=== PATIENT | female | born 1995 | race Hispanic/Latino ===

== ENCOUNTER 2017-01-25 22:31 | Emergency (ER) | payer BC ==
[2017-01-25 22:42] VITALS: BMI 21.1
[2017-01-25 23:11] VITALS: TEMP 99.3; O2SAT 100
--- NOTE | 2017-01-25 23:35 | ED PDOC ---
Arrival/HPI - General Historian: Patient - General Chief Complaint: Abdominal Pain Time Seen by Provider: 01/25/17 23:12 - History of Present Illness Narrative History of Present Illness (Text): 01/25/17 23:32 Patient with past medical history of PCO S and irregular menses, complains of one-week history of intermittent right pelvic pain, patient states when the pain initially started it lasted for 2 days then resolved spontaneously on its own. Patient then adds that 2 days ago the pain recurred and has continued to be intermittent in nature, however today the pain was more pronounced associated with nausea and dysuria, prompting ER visit. Otherwise: (-) vomiting , (-) diarrhea, (-) fever, (-) urinary frequency, (-) vaginal bleeding / discharge, (-) decrease in appetite, (-) melena, (-) hematochezia. Has no history of prior abdominal surgery or similar conditions in the past. Patient states that she saw her PMD yesterday for similar symptoms, had a urine test done which showed no UTI and a negative hCG test. Patient does add that she has never had sexual intercourse and that her last menstrual period was 3 months ago. PMD Pa (Aurora Taylor PA-C) Past Medical History - Provider Review Nursing Documentation Reviewed: Yes - Past History Past History: No Previous - Tetanus Immunization Tetanus Immunization: Up to Date - Psychiatric Hx Depression: No Hx Emotional Abuse: No Hx Physical Abuse: No Hx Substance Use: No - Past Surgical History Past Surgical History: No Previous - Suicidal Assessment Feels Threatened In Home Enviroment: No Family/Social History - Physician Review Nursing Documentation Reviewed: Yes Family/Social History: No Known Family HX Smoking Status: n Hx Alcohol Use: No Hx Substance Use: No Allergies/Home Meds Allergies/Adverse Reactions: Allergies amoxicillin [From Augmentin] Allergy (Verified 01/25/17 22:43) RASH azithromycin Allergy (Verified 01/25/17 22:43) RASH clavulanic acid [From Augmentin] Allergy (Verified 01/25/17 22:43) RASH Review of Systems - Review of Systems Constitutional: Normal. absent: Fatigue, Weight Change, Fevers Respiratory: Normal. absent: SOB, Cough, Sputum Cardiovascular: Normal. absent: Chest Pain, Palpitations, Edema Gastrointestinal: Normal, Abdominal Pain, Nausea. absent: Stool Changes, Vomiting, Appetite Changes Genitourinary Female: Normal, Dysuria. absent: Frequency, Hematuria Musculoskeletal: Normal. absent: Arthralgias, Back Pain, Neck Pain Skin: Normal. absent: Rash, Pruritis, Skin Lesions Physical Exam - Physical Exam Narrative Physical Exam (Text): 01/25/17 23:36 GENERAL APPEARANCE: Patient is awake, alert, oriented x 3, in no acute distress. SKIN: Warm, dry; (-) cyanosis. EYES: (-) conjunctival pallor, (-) scleral icterus. ENMT: Mucous membranes moist. NECK: (-) tenderness, (-) stiffness, (-) lymphadenopathy. CHEST AND RESPIRATORY: (-) rales, (-) rhonchi, (-) wheezes; breath sounds equal bilaterally. HEART AND CARDIOVASCULAR: (-) irregularity; (-) murmur, (-) gallop. ABDOMEN AND GI: (-) distention. Bowel sounds active; (+) minimal tenderness to the R pelvic area, (-) McBurney's, (-) Psoas sign, (-) Obturator, (-) Rovsing , (-) guarding, (-) rebound, (-) palpable masses, (-) CVA tenderness. EXTREMITIES: (-) deformity, (-) edema, (+) distal pulses. NEURO AND PSYCH: Mental status as above; (-) focal findings. (Brandon TORRES, Aurora Unger) Vital Signs Temp Pulse Resp BP Pulse Ox 01/26/17 00:45 90 18 118/75 100 01/25/17 22:41 99.3 F 111 H 20 120/76 100 Medical Decision Making Re-evaluation Time: 01:15 Reassessment Condition: Re-examined, Improved (Patient laying in bed in no acute distress. Reports no abdominal pain or nausea. Abdomen remains soft with no tenderness, no gaurding and no rebound. (-) McBurney's. Repeat VS P 90 BP 118 /75 R 18 O2sat 100%RA. ) - Lab Interpretations I have reviewed the lab results: Yes (UA shows (+) UTI, given macrobid po.) Interpretation: All labs normal ED Course and Treatment: 01/25/17 23:37 21 yo F presents with R pelvic pain. To r/o ovarian torsion, possible ovarian cyst, unlikely to be appendicitis. Patient is refusing analgesics and antiemetics at this time. Plan: -- Labs -- IV fluids -- Urinalysis -- Reassess and disposition -- US pelvic 01/26/17 01:18 Diagnostic results discussed with the patient and family in great detail. Based on history, exam and diagnostic results plan will be for outpatient follow -up with PMD and with BULK MAIL CLERK. Patient states that she has an appointment scheduled in 4 days with her BULK MAIL CLERK. Patient states she fully agrees with and understands discharge instructions. States that she agrees with the plan and disposition. Verbalized and repeated discharge instructions and plan. I have given the patient opportunity to ask any additional questions. Follow up with primary care physician and adult crossing guard in 1-2 days without fail. Advised to take medication as prescribed. Return to the emergency room at any time for any new or worsening symptoms. (Brandon TORRES,Aurora Unger) - Lab Interpretations Lab Results: 01/25/17 23:05 01/25/17 23:05 Lab Results 01/25/17 23:05: Sodium 143, Potassium 3.6, Chloride 104, Carbon Dioxide 25, Anion Gap 18, BUN 8, Creatinine 0.7, Est GFR ( Amer) > 60, Est GFR (Non- Af Amer) > 60, Random Glucose 107, Calcium 10.1, Total Bilirubin 0.5, AST 37, ALT 31, Alkaline Phosphatase 74, Total Protein 8.9 H, Albumin 4.9 H, Globulin 4.0, Albumin/Globulin Ratio 1.2, Lipase 125 01/25/17 23:05: Urine Color Yellow, Urine Appearance Clear, Urine pH 7.0, Ur Specific [place] 1.010, Urine Protein Negative, Urine Glucose (UA) Negative, Urine Ketones Negative, Urine Blood Negative, Urine Nitrate Negative, Urine Bilirubin Negative, Urine Urobilinogen 0.2, Ur Leukocyte Esterase Trace H, Urine RBC 0 - 2, Urine WBC 2 - 5, Ur Epithelial Cells 4 - 5, Urine Bacteria Occ 01/25/17 23:05: PT 10.6, INR 0.98, APTT 27.8 01/25/17 23:05: WBC 9.9 D, RBC 4.52, Hgb 13.2, Hct 39.1, MCV 86.5, MCH 29.2, MCHC 33.8, RDW 12.4, Plt Count 330, MPV 10.9, Gran % 65.7, Lymph % (Auto) 24.0, [place] % (Auto) 9.2 H, Eos % (Auto) 0.5 L, Baso % (Auto) 0.6, Gran # 6.47, Lymph # 2.4, [place] # 0.9 H, Eos # 0.1, Baso # 0.06 - RAD Interpretation Narrative RAD Interpretations (Text): 01/26/17 01:02 US pelvis: FINDINGS: Uterus/cervix: Uterus measures 7.3 x 2.9 x 2.7 cm. Endometrium measures 3.4 mm No myometrial mass. Right ovary: Right ovary measures 3.5 x 2 x 3.1 cm. Follicles. Normal blood flow. Left ovary: Left ovary measures 2.7 x 2.2 x 3.1 cm. Follicles. Normal blood flow. Free fluid: No free fluid. IMPRESSION: This examination is predicated on a negative test All of the findings can be seen normally given the patient's age, and presumed negative test. No definitive sonographic findings of polycystic ovarian syndrome Dictated and Authenticated by: Sadia Stone MD 01/26/2017 12:49 AM Eastern Time ([place] & [place]) (Brandon TORRES,Aurora Unger) Radiology Orders: 01/25/17 23:30 Pelvis [PELVIS ULTRASOUND] [US] Routine - Medication Orders Current Medication Orders: Discontinued Medications Nitrofurantoin Macrocrystals (Macrobid) 100 mg PO ONCE ONE Stop: 01/26/17 01:18 Last Admin: 01/26/17 01:27 Dose: 100 mg - PA / AREA ATTENDANT / Resident Statement / has reviewed & agrees with the documentation as recorded. Disposition/Present on Arrival - Present on Arrival Any Indicators Present on Arrival: No History of DVT/PE: No History of Uncontrolled Diabetes: No Urinary Catheter: No History of Decub. Ulcer: No History Surgical Site Infection Following: None - Disposition Have Diagnosis and Disposition been Completed?: Yes Disposition Time: 01:00 Patient Plan: Discharge - Disposition Diagnosis: Pelvic pain, UTI (urinary tract infection) Disposition: HOME/ ROUTINE Condition: IMPROVED Discharge Instructions (ExitCare): Urinary Tract Infection in Women (ED), Pelvic Pain (ED) Print Language: ARABIC Additional Instructions: Thank you for letting us take care of you today. You were treated for pelvic pain, UTI. The emergency medical care you received today was directed at your acute symptoms. If you were prescribed any medication, please fill it and take as directed. It may take several days for your symptoms to resolve. Return to the Emergency Department if your symptoms worsen, do not improve, or if you have any other problems. Please contact your doctor / adult crossing guard in 2 days for re-evaluation and follow up. Bring any paperwork you were given at discharge with you along with any medications you are taking to your follow up visit. Our treatment cannot replace ongoing medical care by a primary care provider (PCP) outside of the emergency department. Thank you for allowing the [facility] [place] team to be part of your care today. Prescriptions: Nitrofurantoin Macrocrystals [Macrobid] 100 mg PO BID #[id number] Referrals: Sharri Winn MD [Primary Care Provider] - Follow up with primary
[2017-01-25 23:40] LABS: ADD MANUAL DIFF? NO
[2017-01-25 23:43] LABS: URINE BILIRUBIN NEGATIVE (NEGATIVE); URINE BLOOD NEGATIVE (NEGATIVE); URINE GLUCOSE (UA) NEGATIVE (NEGATIVE); URINE KETONE NEGATIVE (NEGATIVE); URINE LEUKOCYTE ESTERASE TRACE Leu/uL (NEGATIVE); URINE PROTEIN NEGATIVE mg/dL (<30 mg/dL); URINE UROBILINOGEN 0.2 E.U./dL (<1 E.U./dL)
[2017-01-25 23:52] LABS: BASO # 0.06 K/mm3 (0.0-2.0); BASO % 0.6 % (0.0-3.0); EOS # 0.1 (0.0-0.7); EOS % 0.5 % (1.5-5.0); GRAN # 6.47 (1.4-6.5); GRAN % 65.7 % (50.0-68.0); HEMATOCRIT 39.1 % (36.0-48.0); LYMPH # 2.4 (1.2-3.4); MEAN CELL VOLUME 86.5 fL (80.0-105.0); MEAN CORPUSCULAR HEMOGLOBIN 29.2 pg (25.0-35.0); MEAN CORPUSCULAR HGB CONC 33.8 g/dl (31.0-37.0); MEAN PLATELET VOLUME 10.9 fl (7.0-11.0); MONO # 0.9 (0.1-0.6); MONO % 9.2 % (1.0-6.0); PLATELET COUNT 330 10^3/uL (120.0-450.0); RED CELL DISTRIBUTION WIDTH 12.4 % (11.5-14.5); WHITE BLOOD COUNT 9.9 10^3/ul (4.5-11.0)
[2017-01-25 23:54] LABS: INR 0.98 (0.93-1.08); PARTIAL THROMBOPLASTIN TIME 27.8 Seconds (23.7-30.8)
[2017-01-25 23:55] LABS: URINE APPEARANCE CLEAR (CLEAR); URINE COLOR YELLOW (YELLOW)
[2017-01-26 00:16] LABS: ALB/GLOB RATIO 1.2 (1.1-1.8); ALKALINE PHOSPHATASE 74 U/L (38-133); ALT/SGPT 31 U/L (7-56); AST/SGOT 37 U/L (15-39); BILIRUBIN,TOTAL 0.5 mg/dL (0.2-1.3); BLOOD UREA NITROGEN 8 mg/dL (7-21); CALCIUM 10.1 mg/dL (8.4-10.5); CARBON DIOXIDE 25 mmol/L (21-33); CHLORIDE 104 mmol/L (95-110); GFR AFRICAN-AMERICAN > 60; GLUCOSE,RANDOM 107 mg/dL (70-110); LIPASE 125 U/L (23-300); POTASSIUM 3.6 mmol/L (3.6-5.0); SODIUM 143 mmol/L (132-148); TOTAL PROTEIN 8.9 g/dL (5.8-8.3); URINE RBC 0 - 2 /hpf (0-2)
[2017-01-26 00:17] LABS: URINE BACTERIA OCC (NEG)
[2017-01-26 01:18] VITALS: BP 118/75; PULSE 90; RESP 18
--- NOTE | 2017-01-26 09:14 | US ---
PROCEDURE: HISTORY: R pelvic pain, h/o PCOS, can not do TV US COMPARISON: None TECHNIQUE: FINDINGS: The uterus measures 7.3 x 2.9 x 3.7 centimeters. The endometrium measures 3 millimeters. The right ovary measures 3.5 x 2.0 centimeters. The left ovary measures 3.1 x 2.7 centimeters. There is no free fluid the pelvis. IMPRESSION: Normal pelvic ultrasound.
== END 2017-01-26 01:29 | disposition home or self-care (01) ==
LOC: ED 22:31
DX: R10.2 Pelvic and perineal pain (principal); N39.0 Urinary tract infection, site not specified